=== PATIENT | male | born 1945 | race Caucasian/White ===

== ENCOUNTER 2020-03-30 17:00 | Outpatient (RCR) | payer MEDICARE, OTHER, SELFPAY | END 2020-04-26 15:00 | disposition home or self-care (01) | LOC: PT.CARL 17:00 | PROVIDERS: PCP Internal Medicine; Visit Provider Nurse Practitioner Family | DX: M54.5 Low back pain (principal) | CPT/HCPCS: 97010; 97014; 97110; 97140; 97163; G0283 ==

== ENCOUNTER → 2020-11-08 12:06 | Outpatient (CLI) | payer MEDICARE, OTHER, SELFPAY ==
--- NOTE | 2020-11-08 12:48 | CA_ITS ---
APPROVED REPORT EXAM: Comprehensive 2D, Doppler, and color-flow Echocardiogram Auditor Appraiser: Corie Henderosn RVT Ht: 5 ft 8 in Wt: 230lbs BSA: 2.17 BP: 135/78 mmHg Indications: ASCENDING AA,OBIE,EX SMOKER,HTN,HLD,STENT 2D Dimensions LVOT 2.35 cm (M/F) 1.5-2.5 LA Volume 22.80 mL LA Volume Index 10.50 mL/m2 (M/F) 16-34 M-Mode Dimensions RVDd 1.92 cm (0.9-2.6) LA Diam 3.39 cm (1.9-4.0) LVDd 5.90 cm (3.5-5.7) Ao Diam 4.08 cm (2.0-3.7) LVDs 3.84 cm (3.5-5.7) IVSd 1.25 cm (0.6-1.1) PWd 1.43 cm (0.6-1.1) EF (Teich) 63.30% FS 34.90% EDV (Teich) 173.20 mL TAPSE 1.96 (<1.7) ESV (Teich) 63.50 mL LV Diastology E Decel Time 150.00 (160-240 msec) E/A Ratio 0.8 MED E' 5.70 (< 7 cm/sec) E'/MED E' Ratio 9.84 (>14) LAT E' 5.20 (<10 cm/sec) E/LAT E' Ratio 10.79 (>14) Aortic Valve AI PHT 2146.00 ms AO Peak GR. 3.90 mmHg Mitral Valve MV E Max Russell. 56.00 (40-130 cm/s) MV A Velocity 68.00 (40-130 cm/s) E/A Ratio 0.82 MV Decel. Time 150.00 (160-240 ms) MV PHT 44.00 ms Pulmonary Valve PV Peak Velocity 94.00 (50-150 cm/s) Left Ventricle Left atrium is mildly enlarged, left ventricle is normal size, mild concentric left ventricular hypertrophy, visually estimated ejection fraction 50% with no regional wall motion abnormality, grade 1 diastolic dysfunction seen without tissue Doppler evidence of raise left atrial pressure. Right Ventricle Right atrium and right ventricle are normal size and contractility. Aortic Valve Aortic valve is minimally thickened and fibrosed, there is no aortic stenosis, there is mild aortic insufficiency. Mitral Valve Mitral valve leaflets are minimally thickened, there is mild mitral regurgitation. Tricuspid Valve Tricuspid valve grossly normal, there is mild tricuspid regurgitation, tricuspid regurgitation jet velocity is inadequate for calculation of the right ventricular systolic pressure. Pulmonic Valve Pulmonic valve is poorly visualized. Great Vessels Aortic root is mildly enlarged measuring 3.8 cm. Inferior vena cava is not well visualized. Pericardium No significant pericardial effusion noted. Conclusion 1. Technically difficult study, normal left ventricular size, mild concentric left ventricular hypertrophy, visually estimated ejection fraction 50% with no regional wall motion abnormality, grade 1 diastolic dysfunction seen without tissue Doppler evidence of raise left atrial pressure. 2. Mildly enlarged aortic root and ascending aorta measuring 3.8 cm. There is no aortic stenosis, there is mild aortic insufficiency. 3. Mild mitral and tricuspid regurgitation. 4. No significant pericardial effusion noted. Electronically signed by : Vladimir Cano MD 11/08/2020 20:43:06
== END ==
PROVIDERS: PCP Internal Medicine Adolescent Medicine; Visit Provider Thoracic Surgery (Cardiothoracic Vascular Surgery)
DX: I71.2 Thoracic aortic aneurysm, without rupture (principal)
CPT/HCPCS: 93306

== ENCOUNTER → 2020-12-21 10:45 | Outpatient (CLI) | payer MEDICARE, OTHER, SELFPAY ==
[2020-12-22 09:49] LABS: Hemoglobin A1C 7.2 % (4.0-6.0)
[2020-12-22 10:03] LABS: Anion Gap 15.9 mEq/L (5-15); Blood Urea Nitrogen 15 mg/dl (9-20); Calcium 9.4 mg/dl (8.4-10.2); Carbon Dioxide 23 mmol/L (22.0-30.0); Chloride 103 mmol/L (98-107); Estimated Glomerular Filt Rate 82 ml/min (>60); GFR (African American) 100 ML/MIN (>60); Glucose 148 mg/dl (74-100); Potassium 4.9 mmoL/L (3.5-5.1); Sodium 137 mmol/L (136-145)
== END ==
PROVIDERS: Visit Provider Internal Medicine Adolescent Medicine
DX: E11.9 Type 2 diabetes mellitus without complications (principal); Z79.84 Long term (current) use of oral hypoglycemic drugs
CPT/HCPCS: 80048; 83036

== ENCOUNTER → 2021-02-22 18:52 | Outpatient (CLI) | payer MEDICARE, OTHER, SELFPAY ==
[2021-02-22 19:24] LABS: Basophils # 0.1 K/mm3 (0-0.2); Basophils % 0.8 % (0.1-2.0); Eosinophils # 0.3 K/mm3 (0.0-0.4); Eosinophils % 4.1 % (0.1-12.0); Hematocrit 39.8 % (42.0-52.0); Hemoglobin 12.3 g/dL (14.1-18.0); Lymphocytes # 1.7 K/mm3 (0.7-4.5); Lymphocytes % 25.7 % (10-50); Mean Corpuscular Hemoglobin 30.3 pg (27.0-31.2); Mean Corpuscular Volume 97.7 fl (80-94); Mean Platelet Volume 9.4 fl (7.4-10.4); Monocytes # 0.4 K/mm3 (0.1-1.0); Monocytes % 5.8 % (1.7-9.3); Neutrophils # 4.1 K/mm3 (1.8-7.8); Neutrophils % 63.7 % (37.0-80.0); Platelet Count 297 K/mm3 (142-424); Red Blood Count 4.07 M/mm3 (4.60-6.20); Red Cell Distribution Width 15.9 % (11.5-17.5); White Blood Count 6.5 K/mm3 (4.8-10.8)
[2021-02-22 19:41] LABS: Alanine Aminotransferase 24 U/L (12-78); Albumin/Globulin Ratio 1.7 (1.1-1.8); Alkaline Phosphatase 57 U/L (38-126); Anion Gap 13.4 mEq/L (5-15); Aspartate Amino Transferase 29 U/L (17-59); Bilirubin,Total 0.4 mg/dl (0.2-1.3); Blood Urea Nitrogen 14 mg/dl (9-20); Calcium 9.1 mg/dl (8.4-10.2); Carbon Dioxide 25 mmol/L (22.0-30.0); Chloride 101 mmol/L (98-107); Estimated Glomerular Filt Rate 73 ml/min (>60); GFR (African American) 88 ML/MIN (>60); Globulin 2.3 g/dL (1.3-3.2); Glucose 169 mg/dl (74-100); Potassium 4.4 mmoL/L (3.5-5.1); Sodium 135 mmol/L (136-145); Total Protein,Serum 6.3 g/dl (6.3-8.2)
== END ==
PROVIDERS: Visit Provider Internal Medicine Adolescent Medicine
DX: K57.92 Diverticulitis of intestine, part unspecified, without perforation or abscess without bleeding (principal); Z86.711 Personal history of pulmonary embolism
CPT/HCPCS: 80053; 85025

== ENCOUNTER 2021-03-22 10:00 | Outpatient (RCR) | payer MEDICARE, OTHER, SELFPAY ==
--- NOTE | 2021-02-28 12:22 | HMH.PTOPEV ---
PT Outpatient Evaluation Rehab PT Outpatient Evaluation Start: 02/28/21 10:57 Freq: Status: Active Protocol: Document 02/28/21 10:57 PDESEROUX (Rec: 02/28/21 12:22 [email or web address] [id number]) Electronically Signed By Reinier Elliott, LAURA 02/28/21 10:57 Outpatient Therapy Subjective History Subjective History Pt. is a 75 year old male who presents to [facility] Out[facility] Therapy [facility] for the initial evaluation w/ c/o subacute and activity dependent post- surgical P!, muscle weakness, and deconditioning after staying in the hospital for 17 days. Pt. reports a loss of muscle strength, endurance, and shortness of breath(SOB) w / exertion after staying in the hospital for 17 days. Pt. reports having a GI bleed which required extensive surgery. Pt. reports post- surgical restrictions that include no lifting weighted objects at this time. Pt. reports being released from his Surgeon, but RTMD(Dr. Gordon) in 6 wks. Pt. reports seeing his Platen Builder Up tomorrow(03/01/21). Pt. reports his goals for Physical Therapy are to improved muscle strength, muscle endruance, and SOB w/ exertion . Current medications include Methocarbamol, Finasteride, Tamsulosin, Tamsulosin, Atenolol, Omeprazole, Amlodipine, Hydrochlorothiazide, Valsartan , Glimepiride, Metformin, Melatonin, Oxybutynin, Eliquis , Cholestyramine, and Escitalopram. PMH includes Hernia Repair, Type II Diabetes, and Angiopasty. Pt. denies history of cancer(self) , denies pacemaker. Chief Complaint Pain,Gives out/Unstable, Weakness Symptom Type Ache,Dull,Burning,Shooting
== END 2021-04-18 14:51 | disposition home or self-care (01) ==
LOC: PT.CARL 10:00
PROVIDERS: PCP Internal Medicine Adolescent Medicine; Visit Provider Internal Medicine Adolescent Medicine
DX: R53.81 Other malaise (principal)
CPT/HCPCS: 97110; 97163

== ENCOUNTER → 2021-06-21 10:44 | Outpatient (CLI) | payer MEDICARE, OTHER, SELFPAY ==
--- NOTE | 2021-06-21 10:46 | MR_ITS ---
FINAL REPORT CLINICAL HISTORY: LUMBAR NEURALGIA lower back pain when standing /walking x 5 years no recent trauma or injury FINDINGS: Multiplanar MR imaging of the lumbar spine was performed without contrast. On the sagittal T2-weighted images, disc degeneration is seen at multiple levels. There is 5 mm of anterolisthesis of L4 on L5. There is mild retrolisthesis of L2 on L3, L3 on L4 and L5 on S1. There is no evidence of fracture. The conus has an unremarkable appearance. L1-2: There is an annular disc bulge with facet arthropathy and vertebral osteophytes. There is mild left neural foraminal narrowing. L2-3: There is an annular disc bulge with facet arthropathy and vertebral osteophytes. There is mild bilateral neural foraminal narrowing. L3-4: There is an annular disc bulge with facet arthropathy and vertebral osteophytes. There is moderate right and mild left neural foraminal narrowing. L4-5: There is an annular disc bulge with facet arthropathy and vertebral osteophytes. There is mild right and moderate left neural foraminal narrowing. There is mild central canal stenosis with and AP diameter of the thecal sac of 7 mm. L5-S1: There is an annular disc bulge with facet arthropathy and vertebral osteophytes. There is a left foraminal disc protrusion. There is mild right and severe left neural foraminal narrowing. There is spurring of the SI joints. IMPRESSION: Multilevel degenerative disc disease with areas of neural foraminal narrowing which is worse on the left at L5-S1. Left foraminal disc protrusion at L5-S1. Mild central canal stenosis at L4-L5. Reviewed, Interpreted and Dictated by Dayday Francis III, MD Transcribed by Teresa Elizabeth Authenticated by Dayday Francis III, MD on 06/21/2021 12:40:51 PM [facility]
== END ==
PROVIDERS: PCP Internal Medicine Adolescent Medicine; Visit Provider Internal Medicine Adolescent Medicine
DX: M54.16 Radiculopathy, lumbar region (principal)
CPT/HCPCS: 72148; 76376

== ENCOUNTER → 2021-07-21 10:30 | Outpatient (POV) | payer MEDICARE, OTHER, SELFPAY ==
[2021-07-21 12:22] VITALS: BP 142/79; PULSE 67; RESP 18; TEMP 36.2; O2SAT 95; BMI 34.9
--- NOTE | 2021-07-21 13:31 | HMH.PMCON ---
Assessment and Plan (1) Degenerative disc disease, lumbar Status: Acute Category: Medical Code(s): M51.36 - Other intervertebral disc degeneration, lumbar region (2) Lumbar radiculopathy Status: Acute Category: Medical Code(s): M54.16 - Radiculopathy, lumbar region (3) Spinal stenosis, lumbar region with neurogenic claudication Status: Acute Category: Medical Code(s): M48.062 - Spinal stenosis, lumbar region with neurogenic claudication (4) Facet arthropathy Status: Acute Category: Medical Code(s): M47.819 - Spondylosis without myelopathy or radiculopathy, site unspecified (5) Lumbar spondylosis Status: Acute Category: Medical Code(s): M47.816 - Spondylosis without myelopathy or radiculopathy, lumbar region - Assessment and plan all Dx Assessment and Plan for all problems:: IMAGING: FINAL REPORT CLINICAL HISTORY: LUMBAR NEURALGIA lower back pain when standing /walking x 5 years no recent trauma or injury FINDINGS: Multiplanar MR imaging of the lumbar spine was performed without contrast. On the sagittal T2-weighted images, disc degeneration is seen at multiple levels. There is 5 mm of anterolisthesis of L4 on L5. There is mild retrolisthesis of L2 on L3, L3 on L4 and L5 on S1. There is no evidence of fracture. The conus has an unremarkable appearance. L1-2: There is an annular disc bulge with facet arthropathy and vertebral osteophytes. There is mild left neural foraminal narrowing. L2-3: There is an annular disc bulge with facet arthropathy and vertebral osteophytes. There is mild bilateral neural foraminal narrowing. L3-4: There is an annular disc bulge with facet arthropathy and vertebral osteophytes. There is moderate right and mild left neural foraminal narrowing. L4-5: There is an annular disc bulge with facet arthropathy and vertebral osteophytes. There is mild right and moderate left neural foraminal narrowing. There is mild central canal stenosis with and AP diameter of the thecal sac of 7 mm. L5-S1: There is an annular disc bulge with facet arthropathy and vertebral osteophytes. There is a left foraminal disc protrusion. There is mild right and severe left neural foraminal narrowing. There is spurring of the SI joints. IMPRESSION: Multilevel degenerative disc disease with areas of neural foraminal narrowing which is worse on the left at L5-S1. Left foraminal disc protrusion at L5-S1. Mild central canal stenosis at L4-L5. Reviewed, Interpreted and Dictated by Dayday Francis III, MD Transcribed by Teresa Elizabeth Authenticated by Dayday Francis III, MD on 06/21/2021 12:40:51 PM [facility]: Patient presents today with chief complaint of low back pain that radiates to bilateral lower extremities. He does have a positive shopping cart sign. He continues to do physical therapy which is providing some relief. He takes Tylenol arthritis for pain. We will schedule this patient for lumbar epidural steroid injection with epidurogram at L4-L5. Risks and benefits of the procedure have been explained to the patient. Patient would like to proceed with the procedure. Patient is on Eliquis. Patient will have to stop this medication prior to his procedure. We will reach out to Dr. Angel in [place] to see if the patient can stop this medication. Upon review of the patient's MRI, patient does have significant central canal stenosis at L4-L5 from annular bulging and ligamentum flavum hypertrophy. We will evaluate during the lumbar epidural steroid injection epidurogram to see if the patient is a good candidate for the mild procedure or the Vertiflex procedure. If the pt does not get significant relief from LESI, we will consider scheduling the patient for diagnostic lumbar facet/MBB at L4-L5 and L5-S1. Patient has been instructed to contact the clinic with any concerns before the next appointment. Dr. Saucedo has reviewed this note and agrees with this plan
== END ==
PROVIDERS: Visit Provider Student in an Organized Health Care Education/Training Program
DX: M51.16 Intervertebral disc disorders with radiculopathy, lumbar region (principal); M48.062 Spinal stenosis, lumbar region with neurogenic claudication; M47.26 Other spondylosis with radiculopathy, lumbar region
CPT/HCPCS: 99202; G0463

== ENCOUNTER 2021-08-12 13:49 | Day surgery (SDC) | payer MEDICARE, OTHER, SELFPAY ==
[2021-08-12 13:55] VITALS: BP 147/76; PULSE 67; RESP 20; O2SAT 96; BMI 31.4
[2021-08-12 14:10] VITALS: BP 135/71; PULSE 77; RESP 20
--- NOTE | 2021-08-12 14:18 | P.PCN_ITS ---
- Procedure Date: 08/12/21 Time: 14:18 Anesthesiologist:: Duran Saucedo MD Complications:: None Pre-procedure Diagnosis:: Degenerative disc disease of lumbar spine with lumbar radiculopathy symptoms and lumbar spinal stenosis with neurogenic claudication symptoms Post-procedure Diagnosis:: Same Indications for Procedure:: This patient is a pleasant 76-year-old white male who we are treating for low back pain with lumbar radicular symptoms. He has significant lumbar spinal stenosis with ligamentum flavum hypertrophy at L3-4 and L4-L5. He has increasing pain while walking and standing. He does get relief of his pain by leaning forward and sitting down. We will do a lumbar epidural steroid injection with epidurogram today to assess levels of stenosis and candidacy for minimally invasive lumbar decompression. He has been off of his Eliquis for 3 days. Procedure Details:: Informed consent was obtained and the risk and benefits of the procedure was e xplained to the patient. The patient was taken to the procedure room. The patient was placed prone on the procedure table. The patient was prepped and draped in sterile fashion. C-arm fluoroscopy was used to view the lumbar spine. Skin and subcutaneous tissues were anesthetized using lidocaine. I placed an 18-gauge epidural needle and advanced into the L4-L5 interspace using fluoroscopic guidance and [id number] to air. After confirmation of needle placement in the epidural space with dye I injected 2 mL of lidocaine 1.5% with Depo-Medrol 80 mg. Patient tolerated the procedure well with no complications. Plan and Disposition:: Based on epidurogram he does have significant stenosis at L3-4 and L4-L5 bilaterally. I do believe he would be a good candidate for minimally invasive lumbar decompression bilateral L3-4 and L4-L5. He will need to be off of his Eliquis for 4 days prior to the injection.
[2021-08-12 14:25] VITALS: BP 151/80; PULSE 75; RESP 18; O2SAT 94
== END 2021-08-12 14:26 | disposition home or self-care (01) ==
LOC: SC.PAINP 13:50
PROVIDERS: PCP Internal Medicine Adolescent Medicine; Visit Provider Anesthesiology
DX: M51.16 Intervertebral disc disorders with radiculopathy, lumbar region (principal); M48.062 Spinal stenosis, lumbar region with neurogenic claudication
CPT/HCPCS: 62323; J1040; Q9966

== ENCOUNTER → 2021-08-29 08:32 | Outpatient (POV) | payer MEDICARE, OTHER, SELFPAY ==
[2021-08-29 09:17] VITALS: BP 151/80; PULSE 75; RESP 20; TEMP 36.6; O2SAT 94; BMI 35.6
--- NOTE | 2021-08-29 09:17 | HMH.PAINSOAP ---
[facility] Pain Management SOAP Note Subjective:: Patient is a pleasant 76-year-old male who presents today for follow-up after a lumbar epidural steroid injection with epidurogram on August 12, 2021. Patient is currently being treated for degenerative disc disease of lumbar spine with lumbar radiculopathy symptoms, lumbar spinal stenosis with neurogenic claudication symptoms. After his injection, patient had significant relief of 80 to 90% that lasted for about a week. He states that he is not really complaining of pain but he is complaining of heaviness on bilateral lower extremities when he walks for more than 100 feet. Denies any recent falls or traumas. He has tried and failed conservative therapy in the past such as oral medication, and home exercises for greater than 6 weeks. He is not interested in any surgical interventions on his back. He states that he has known people who needed several rounds of back surgeries before they got relief. He takes Tylenol arthritis 3-4 times a day for as needed pain. He rates his pain today as 1 out of 10. He is not on any scheduled medications. Review of Systems: General: No recent weight changes, no fever, no sleep disturbances Respiratory: No cough, no shortness of air, no recurring pulmonary infections Cardiovascular/peripheral vascular: No chest pain, no palpitations, no edema, no shortness of breath Gastrointestinal: No new onset incontinence, normal bowel movements reported Genitourinary: No new onset incontinence Musculoskeletal: Low back pain Psychiatric: [Normal mood/affect] Neurological: [Denies weakness in extremities], [denies balance issues] Objective:: Physical Exam: General: Alert and oriented x3, no acute distress, pleasant and cooperative Lungs: Respirations even and unlabored, symmetrical chest expansion Eyes: PERRL Musculoskeletal: Flexion and extension of lumbar [spine] somewhat guarded secondary to pain, [antalgic gait noted] Neurological: Speech clear, no gross sensory deficit Assessment:: Degenerative disc disease of lumbar spine with lumbar radiculopathy symptoms, spinal stenosis with neurogenic claudication Plan:: Patient had significant relief after the lumbar epidural steroid injection with epidurogram that lasted for about a week. During his injection with epidurogram, patient is found to be a good candidate for the minimally invasive lumbar decompression bilaterally at L3-L4, L4-5. We will schedule the patient for this procedure. Risk and benefits of this procedure has been discussed with the patient. Patient would like to proceed with the minimally invasive lumbar decompression procedure. Patient is on Eliquis and will need to hold this medication prior to the procedure. Patient is also wanting to be referred for physical therapy to increase his strength. We will refer him today. Per the patient's MRI, patient is also a good candidate for a diagnostic lumbar facet/MBB at L4-L5 and L5-S1. We will discuss this procedure after his minimally invasive lumbar decompression procedure. Patient has been instructed to contact the clinic with any concerns before the next appointment. Dr. Saucedo has reviewed this note and agrees with this plan of care. This note was dictated using voice recognition software and make contain errors or omissions. [facility] History Medical History: Reports:: Coronary Artery Disease, Deep Vein Thrombosis, Diabetes Mellitus Type 2, Gastroesophageal Reflux Disease(GERD), Hyperlipidemia, Hypertension, Kidney Stones, Myocardial Infarction, Pulmonary Embolism Denies:: Cancer, Diabetes Mellitus Type 1, MRSA *Have you ever received a pneumonia vaccine?: Yes *Have you received a flu vaccine this season?: Yes Other Medical History: Reports: Arthritis Laterality Cases: Right: Total Hip Replacement Other Surgeries: Yes: Angioplasty, Cardiac Catheterization, Colonoscopy, Hernia Repair, Sinus Surgery, Ureter Stent, Other Amputation: No Fractures: No - *Social Histo
== END ==
PROVIDERS: Visit Provider Student in an Organized Health Care Education/Training Program
DX: M51.16 Intervertebral disc disorders with radiculopathy, lumbar region (principal); M48.062 Spinal stenosis, lumbar region with neurogenic claudication
CPT/HCPCS: 99212; G0463

== ENCOUNTER → 2021-09-20 10:26 | Outpatient (CLI) | payer MEDICARE, OTHER, SELFPAY ==
[2021-09-20 14:49] LABS: Basophils % 0.7 % (0.1-2.0); Eosinophils # 0.3 K/mm3 (0.0-0.4); Eosinophils % 4.2 % (0.1-12.0); Hematocrit 46.6 % (42.0-52.0); Hemoglobin 14.6 g/dL (14.1-18.0); Lymphocytes # 1.4 K/mm3 (0.7-4.5); Lymphocytes % 21.8 % (10-50); Mean Corpuscular HGB Conc 31.2 g/dL (31.8-35.4); Mean Corpuscular Hemoglobin 30.4 pg (27.0-31.2); Mean Corpuscular Volume 97.5 fl (80-94); Mean Platelet Volume 10.2 fl (7.4-10.4); Monocytes # 0.3 K/mm3 (0.1-1.0); Monocytes % 5.1 % (1.7-9.3); Neutrophils # 4.3 K/mm3 (1.8-7.8); Neutrophils % 68.3 % (37.0-80.0); Platelet Count 207 K/mm3 (142-424); Red Blood Count 4.78 M/mm3 (4.60-6.20); White Blood Count 6.3 K/mm3 (4.8-10.8)
[2021-09-20 14:53] LABS: Chloride 106 mmol/L (98-107); Potassium 4.9 mmoL/L (3.5-5.1); Sodium 138 mmol/L (136-145)
[2021-09-20 14:56] LABS: Anion Gap 13.9 mEq/L (5-15); Blood Urea Nitrogen 20 mg/dl (9-20); Carbon Dioxide 23 mmol/L (22.0-30.0); Estimated Glomerular Filt Rate 82 ml/min (>60); GFR (African American) 99 ML/MIN (>60)
[2021-09-20 14:57] LABS: Calcium 9.8 mg/dl (8.4-10.2); Glucose 200 mg/dl (74-100)
== END ==
PROVIDERS: PCP Internal Medicine Adolescent Medicine; Visit Provider Anesthesiology
DX: Z01.812 Encounter for preprocedural laboratory examination (principal); Z20.822 Contact with and (suspected) exposure to COVID-19; M51.36 Other intervertebral disc degeneration, lumbar region
CPT/HCPCS: 36415; 80048; 85025; C9803; U0003; U0005

== ENCOUNTER 2021-09-23 07:31 | Day surgery (SDC) | payer MEDICARE, OTHER, SELFPAY ==
[2021-09-21 11:17] VITALS: BMI 34.9
[2021-09-23] VITALS (7 sets, daily range): BP systolic 97–132; BP diastolic 58–70; PULSE 68–105; RESP 16–18; TEMP 36.1–43; O2SAT 90–96
[2021-09-23 08:17] LABS: POC Glucose,Bedside 181 (70-110)
--- NOTE | 2021-09-23 09:05 | P.PN_ITS ---
[facility] Anesthesia Checklist - Patient Identification Patient Identification: Arm Band - Structural Data Admitted From: Home Planned Operative Procedure/s: Lumbar decompression Consent for Planned Operative Procedure(s) Verified: Yes - NPO Status Verified Time NPO: 00:00 - Additional verifications Anesthesia Reactions: Yes ( difficult intubation ) Hx Blood Transfusions: Yes Blood Transfusion Reaction: No - Airway Assessment C-Spine Mobility Assessed: Yes TMJ Mobility Assessed: Yes Dentition: Poor Dentition - Neurological Assessment Level of Consciousness: Awake Hx Seizures: No Numbness or tingling in extremities: No - Anesthesia Plan Anesthesia Risk discussed: Yes Anesthesia Plan: Verified ASA Class: III Anesthesia Type: MAC [facility] History I have reviewed the patient's past medical history: Yes Medical History: Reports:: Coronary Artery Disease, Deep Vein Thrombosis, Diabetes Mellitus Type 2, Gastroesophageal Reflux Disease(GERD), Hyperlipidemia, Hypertension, Kidney Stones, Myocardial Infarction, Pulmonary Embolism Denies:: Cancer, Diabetes Mellitus Type 1, Internal Pacemaker, MRSA, Seizures *Have you ever received a pneumonia vaccine?: Yes *Have you received a flu vaccine this season?: Yes Other Medical History: Reports: Arthritis. Denies: Blood Transfusion Reaction Anesthesia experience/problems:: Difficult intubation Laterality Cases: Right: Total Hip Replacement Other Surgeries: Yes: Angioplasty, Cardiac Catheterization, Colonoscopy, Hernia Repair, Sinus Surgery, Ureter Stent, Other. No: Pacemaker Amputation: No Fractures: No - *Social History Last grade of school completed: 11th or 12th Smoking Status: Never smoker Alcohol Intake: current Alcohol Intake Frequency:: holidays/special occasions only Substance Use Type: denies use *Occupational Status:: retired Housing: house Household Members: none *Travel in the last 8 weeks: None Family Hx:: No significant family history
--- NOTE | 2021-09-23 10:56 | P.OP_ITS ---
Date of procedure: 09/23/21 Pre-op Diagnosis:: Degenerative disease of lumbar spine with lumbar radiculopathy symptoms and lumbar spinal stenosis with neurogenic claudication symptoms Post-op Diagnosis:: Same Procedure performed:: Minimally invasive lumbar decompression bilateral L3-L4 and L4-L5 under fluoroscopy Surgeon:: Duran Saucedo MD OFFICE MACHINE PUNCH OPERATOR:: Anna Kidd Anesthesia: MAC Estimated blood loss (mL): 5 Clinical Note:: This patient is a pleasant 76-year-old white male who we have been treating for low back pain with lumbar radiculopathy symptoms and lumbar spinal stenosis with ligamentum flavum hypertrophy and neurogenic claudication symptoms. Based on MRI and epidurogram he does have significant stenosis at L3-4 and L4-L5 bilaterally. He has failed all previous conservative therapy. He has been off of his Eliquis for 3 days. We will perform minimally invasive lumbar decompression bilateral L3-4 and L4-5 today. Operative findings:: none Operative note:: Informed consent was obtained and the risk and benefits of the procedure was explained to the patient. The patient was taken to the operating room and placed prone on the procedure table. The patient was prepped and draped in sterile fashion. C-arm fluoroscopy was used to view the lumbar spine. The skin and subcutaneous tissues were anesthetized using lidocaine. A epidural needle was inserted and advanced into the L3-L4 interspace. After confirmation of needle placement in the epidural space, dye was injected in a contralateral oblique view. There was an epidurogram seen at L3-L4 and L4-L5. Significant stenosis was seen at L3-L4 and L4-L5. The skin and subcutaneous tissues again were anesthetized using lidocaine. An incision was made and a access trocar was inserted and advanced to contact at the superior aspect of the L4 lamina on the left side. And a contralateral oblique view the side was viewed. Using a bone rongeur and tissue sculptor we debulked bone from the L3-L4 and L4-L5 interspace on the left side. We then used the tissue sculptor to debulk ligament at the L3-L4 and L4-L5 interspace on the left side. We then moved over to the right side and debulked bone and ligament from L3-L4 and L4-L5 on the right side. There is opening of the stenosis at L3-L4 and L4-L5 bilaterally. The access trocar was removed. A total of 3 mL's of dye was used. There is good spread of dye above and below this level as well. We injected 80 mg Depo-Medrol through the epidural needle. The epidural needle was removed and dressings were placed. This encounter for exam is for normal comparison and control in a clinical research program Patient was taken to recovery in stable condition. Patient was discharged home neurologically intact and with good relief of pain symptoms. Plan and disposition: We will follow-up with this patient in 2 weeks. Will reevaluate symptoms at that time. Condition: stable Disposition: PACU Complications:: None
== END 2021-09-23 11:34 | disposition home or self-care (01) ==
LOC: OR 07:33
PROVIDERS: PCP Internal Medicine Adolescent Medicine; Visit Provider Anesthesiology
DX: M48.062 Spinal stenosis, lumbar region with neurogenic claudication (principal); E11.9 Type 2 diabetes mellitus without complications; K21.9 Gastro-esophageal reflux disease without esophagitis; I25.10 Atherosclerotic heart disease of native coronary artery without angina pectoris; I10 Essential (primary) hypertension; E78.5 Hyperlipidemia, unspecified; I25.2 Old myocardial infarction; Z79.899 Other long term (current) drug therapy; Z00.6 Encounter for examination for normal comparison and control in clinical research program; M51.16 Intervertebral disc disorders with radiculopathy, lumbar region
CPT/HCPCS: 0275T; 82962; 96374; C1889; J1040; J2704

== ENCOUNTER → 2021-09-26 10:38 | Outpatient (POV) | payer MEDICARE, OTHER, SELFPAY ==
[2021-09-26 11:00] VITALS: BP 139/75; PULSE 74; RESP 20; O2SAT 95; BMI 34.9
--- NOTE | 2021-09-26 11:11 | HMH.PAINSOAP ---
[facility] Pain Management SOAP Note Subjective:: Patient is a pleasant 76-year-old male who presents today for follow-up from a new mild procedure on 09/23/2021. We are currently treating the patient for degenerative disc disease of lumbar spine with lumbar radiculopathy symptoms and lumbar spinal stenosis with neurogenic claudication symptoms. Patient states he is doing well since his procedure. He denies any problems. Patient states that when he did take off his bandage at home the glue was peeled and he did have bleeding. Patient is rating his pain a 0 out of 10 today. He states he is doing well overall. Patient denies any change to the location or type of pain he experiences. His daughter is present with him today for follow-up. She does think he has some altered gait since his hip surgery. Patient does not use any assistive devices. He does have a bike at home that he rides frequently for exercise. His Black is [id number]. It has been reviewed and appropriate. Review of Systems: General: No recent weight changes, no fever, no sleep disturbances Respiratory: No cough, no shortness of air, no recurring pulmonary infections Cardiovascular/peripheral vascular: No chest pain, no palpitations, no edema, no shortness of breath Gastrointestinal: No new onset incontinence, normal bowel movements reported Genitourinary: No new onset incontinence Musculoskeletal: Low back pain Psychiatric: [Normal mood/affect] Neurological: [Denies weakness in extremities], [denies balance issues] Objective:: Physical Exam: General: Alert and oriented x3, no acute distress, pleasant and cooperative Lungs: Respirations even and unlabored, symmetrical chest expansion Eyes: PERRL Musculoskeletal: Flexion and extension of lumbar [spine] somewhat guarded secondary to pain, [antalgic gait noted] Neurological: Speech clear, no gross sensory deficit Assessment:: Degenerative disc disease of lumbar spine with lumbar radiculopathy symptoms and lumbar spinal stenosis with neurogenic claudication symptoms Plan:: Patient has had significant improvement of his pain symptoms since having the MILD procedure. I have discussed with the patient regarding physical therapy for his altered gait. Patient has seen them in the past with significant improvement. Patient would like to proceed forward at this time with therapy. We will follow-up with the patient in 1 month. Patient will return to clinic in 1 month for follow-up and reevaluation of symptoms. Patient has been instructed to contact the clinic with any concerns before the next appointment. Dr. Saucedo has reviewed this note and agrees with this plan of care. This note was dictated using voice recognition software and make contain errors or omissions. [facility] History I have reviewed the patient's past medical history: Yes Medical History: Reports:: Coronary Artery Disease, Deep Vein Thrombosis, Diabetes Mellitus Type 2, Gastroesophageal Reflux Disease(GERD), Hyperlipidemia, Hypertension, Kidney Stones, Myocardial Infarction, Pulmonary Embolism Denies:: Cancer, Diabetes Mellitus Type 1, Internal Pacemaker, MRSA, Seizures *Have you ever received a pneumonia vaccine?: Yes *Have you received a flu vaccine this season?: Yes Other Medical History: Reports: Arthritis. Denies: Blood Transfusion Reaction Laterality Cases: Right: Total Hip Replacement Other Surgeries: Yes: Angioplasty, Cardiac Catheterization, Colonoscopy, Hernia Repair, Sinus Surgery, Ureter Stent, Other. No: Pacemaker Amputation: No Fractures: No - *Social History Smoking Status: Never smoker Alcohol Intake: current Alcohol Intake Frequency:: holidays/special occasions only Substance Use Type: denies use *Occupational Status:: retired Housing: house Household Members: none *Travel in the last 8 weeks: Inside the [place] Family Hx:: No significant family history
== END ==
PROVIDERS: PCP Internal Medicine Adolescent Medicine; Visit Provider Nurse Practitioner Family
DX: M51.16 Intervertebral disc disorders with radiculopathy, lumbar region (principal); M48.062 Spinal stenosis, lumbar region with neurogenic claudication
CPT/HCPCS: 99212; G0463

== ENCOUNTER 2021-10-10 10:00 | Outpatient (RCR) | payer MEDICARE, OTHER, SELFPAY ==
--- NOTE | 2021-10-03 12:14 | HMH.PTOPEV ---
PT Outpatient Evaluation Rehab PT Outpatient Evaluation Start: 10/03/21 10:36 Freq: Status: Active Protocol: Document 10/03/21 10:36 FEMI (Rec: 10/03/21 12:12 [email or web address] [id number]) Electronically Signed By Reinier Elliott, LAURA 10/03/21 10:36 Outpatient Therapy Subjective History Subjective History Pt. is a 76 year old male who presents to [facility] Outpatient Physical Therapy Services in [place] for the initial evaluation this date( 10/03/21) w/ c's/o chronic and constant(but variable) lumbar P!, balance deficits, and ADL deficits of insidious onset for 10 years now. Pt. reports having a chronic history of LBP! that has been treated through the Chiropractor, Physical Therapy, surgery, and the Pain Clinic. Pt. reports having some symptom relief in the lumbar spine w/ previous treament, but states having symptom relief temporarily. Pt . reports having S/P lumbar spine Surgery on 09/23/21 where they cleaned out my L4/ L5 disc. Pt. reports not having any symptom relief w/ surgery nor symptom relief w/ recent injection. Pt. reports his MD at the Pain Clinic would like to trial Physical Therapy 1x/wk. to treat current LBP!. Pt. RTMD . However, pt. reports having symptoms relief regarding the heaviness in BLEs, improvements w/ sleeping , and improved driving post surgery(09/23/21). But, pt. continues to report having functional limitations secondary to LBP! that includes ambulation and LOB. Current medications include Finasteride, Tamsulosin, Atenolol, Omeprazole, Amlodipine, Hydrochlorothiazide, Valsartan
== END 2021-11-14 16:47 | disposition home or self-care (01) ==
LOC: PT.CARL 10:00
PROVIDERS: PCP Internal Medicine Adolescent Medicine; Visit Provider Nurse Practitioner Family
DX: M54.50 Low back pain, unspecified (principal); R26.89 Other abnormalities of gait and mobility
CPT/HCPCS: 97010; 97012; 97014; 97110; 97163; G0283

== ENCOUNTER → 2023-01-08 12:17 | Outpatient (CLI) | payer MEDICARE, OTHER, SELFPAY ==
--- NOTE | 2023-01-08 12:35 | XR_ITS ---
FINAL REPORT CLINICAL HISTORY: LT HIP PAIN FINDINGS: LEFT HIP 3 views of the left hip are obtained. There is no acute fracture or dislocation. There are severe degenerative changes of the left hip. There are postoperative changes of right hip arthroplasty. Visualized joint spaces are normally aligned. There is no acute soft tissue abnormality. There vascular calcifications noted. Postoperative changes are seen in the lower pelvis. IMPRESSION: Severe degenerative changes of the left hip without acute bony abnormality. Reviewed, Interpreted and Dictated by Dayday Francis III, MD Transcribed by Courtney Jacobs Authenticated and . [facility]
== END ==
PROVIDERS: PCP Internal Medicine Adolescent Medicine; Visit Provider Internal Medicine Adolescent Medicine
DX: M25.552 Pain in left hip (principal)
CPT/HCPCS: 73502

== ENCOUNTER 2025-01-12 14:00 | Outpatient (RCR) | payer MEDICARE, OTHER, SELFPAY | END 2025-01-12 23:59 | disposition home or self-care (01) | LOC: PT.CARL 14:00 | PROVIDERS: PCP Internal Medicine Adolescent Medicine; Visit Provider Orthopaedic Surgery | DX: Z47.1 Aftercare following joint replacement surgery (principal); Z96.642 Presence of left artificial hip joint | CPT/HCPCS: 97110; 97112; 97161; 97530 ==

== ENCOUNTER 2025-02-04 13:00 | Outpatient (RCR) | payer MEDICARE, OTHER, SELFPAY | END 2025-02-04 16:45 | disposition home or self-care (01) | LOC: PT.CARL 13:00 | PROVIDERS: PCP Internal Medicine Adolescent Medicine; Visit Provider Orthopaedic Surgery | DX: Z96.642 Presence of left artificial hip joint (principal) | CPT/HCPCS: 97110; 97112; 97530 ==

== ENCOUNTER 2025-02-18 14:00 | Outpatient (RCR) | payer MEDICARE, OTHER, SELFPAY ==
--- NOTE | 2025-02-16 14:28 | HMH.PTOPEV ---
PT Evaluation Rehab PT Outpatient Evaluation Start: 02/16/25 12:54 Freq: Status: Active Protocol: Document 02/16/25 12:55 PDESEROUX (Rec: 02/16/25 14:28 [email or web address] [id number]) E-signed By Reinier Elliott, PT Outpatient Therapy Subjective History Subjective History Pt. is a 79 year old male who presents to [facility] Outpatient Physical Therapy Services in [place] for the PT outpatient initial evaluation this date(02/16/25 ) w/ c/o acute and constant R UE shldr. P!, popping, and weakness of traumatic onset secondary to a fall two weeks ago. Pt. reports he was exiting his home through his side door into his car port when he tripped over the threshold and landed on the R UE shldr. Pt. reports having a chronic history of R UE shldr. RC trauma. Pt. reports in 1997 he was leaving work in [place] and slipped on snow in the parking lot that tore my shoulder up. Pt. reports he elected not to have surgery at that time so I just deal with it. Pt. reports he believes he re-aggravated his previous RC injury. Recent diagnostic imaging(radiograph) R UE shldr. unremarkable per pt. report. Pt. reports he was scheduled for a MRI of the R UE shldr. for last (02/12/25), however, when he went back to the Doctor's room he was told that the MRI machine had broke. Pt. reports he is now waiting on a call to hear back to reschedule his MRI. Pt. denies having any specific restrictions secondary to new injury to R UE shldr. per referring Physician. Pt. does not have a return date to referring Physician at this time until he has his MRI of the R UE shldr. per pt. report. Pt. reports the pain is constant, but c/o P! worsening w/ pushing off to get out of bed in the a.m., trying to put his R UE into the shirt sleeve, rolling over in bed , and using the R UE to feed himself. Pt. also c/o shoulder feels like its about to pop when he twists his arm from time to time, describes the feelings like slipping on ice. Pt. reports having some symptom relief w/ prescribed pain medicine w/ OTC Tylenol that he had prescribed for s/p L LE JANENE , that he was instructed per MD to do so. However, pt. reports the pain always returns after the medicine wears off. Current medications include Tamsulosin, Eliquis, Valsartan, Fenofibrate, Jardiance, Buspirone, Cetirizine, Meloxicam, Ozempic, and Metformin. PMH includes s/p hernia repair, colon resection, DM-II, hypertension, s/p L LE JANENE, and hyperlipidemia. Pt. was being seen for skilled Outpatient Physical Therapy for s/p L LE JANENE and imbalance during recent fall to [facility]. Therefore, pt.'s current order has also included balance order. Physical Therapist instructed pt. to discontinue HEP if symptoms worsened w/ exercises, pt. vocalized understanding. New diagnosis of No cancer in past 12 months? Chief Complaint Pain,Stiff,Clicks,Swelling,Gives out/Unstable,Weakness Symptom Type Ache,Throb,Sharp,Dull,Stabbing,Shooting Symptoms Relieved By Rest/Positioning,Brace/Support,Prescription Meds Symptoms Aggravated Physical Activity,Twisting,Lifting By Prior Functional None Limitations Current Functional Reaching,Lifting,Housework,Dressing,Desk Work/Reading, Limitations Driving,Sleeping,Recreation Activity Symptom Description Constant but Variable,Activity Dependent Level of pain today 2 (0-10) Pain scale - at its 2 best (0-10) Pain scale - at its 10 worst (0-10) Shoulder/Elbow Eval Shoulder Objective Measurements Palpation Tenderness tenderness shoulder right exam standard tenderness over the right bicipital tendon shoulder exam standard tenderness over the right SA bursa shoulder exam standard Shoulder Palpation Tenderness,Spasm Findings Shoulder Palpation grade 4 +TTP greater and lesser tubercles Overall Comment Posture Shoulder Posture (R) Rounded,(R) Forward Standing Position Scapula Posture (R) Protracted Sitting Position Scapular Posture (R) Protracted Standing Position Flexibilty Deficits Latissmus Dorsi (R) Severe Tightness Muscle Length Pectoralis Minor (R) Severe Tightness Muscle Length Pectoralis Major (R) Severe Tightness Muscle Length Shoulder External (R) Severe Tightness Rotators Muscle Length Shoulder Internal (R) Severe Tightness Rotators Muscle Length Supraspinatus Muscle (R) Severe Tightness Length Teres Major Muscle (R) Severe Tightness Length Upper Trapezius (R) Severe Tightness Muscle Length Levaetor Scapulae (R) Severe Tightness Muscle Length Shoulder ROM Right Shoulder ROM Soft Tissue Tightness,Muscle Weakness,Muscle Tone,Pain Limitations Shoulder Abduction 57 Active Range of Motion (degrees) Shoulder Abduction 107 Passive Range of Motion (degrees) Shoulder Flexion 75 Active Range of Motion (degrees) Query Text: Shoulder Flexion 89 Passive Range of Motion (degrees) Shoulder External 37 Rotation Active Range of Motion ( degrees) Shoulder External 41 Rotation Passive Range of Motion ( degrees) Shoulder Internal 73 Rotation Active Range of Motion ( degrees) Shoulder Internal 79 Rotation Passive Range of Motion ( degrees) Shoulder Extension 55 Active Range of Motion (degrees) Shoulder Extension 59 Passive Range of Motion (degrees) pain with active ROM right shoulder exam standard pain with passive right ROM shoulder exam standard decreased ROM right shoulder exam standard Shoulder MMT Shoulder Abduction 2+ Poor+ Strength Grade Shoulder Extension 3 Fair Strength Grade Shoulder Flexion 2+ Poor+ Strength Grade Shoulder External 2+ Poor+ Rotation Strength Grade Shoulder Internal 3 Fair Rotation Strength Grade Shoulder Strength Sitting Patient Testing Position Shoulder Muscle Tone Shoulder Flexor Severe Hypertonicity Muscle Tone Description Shoulder Extensors Severe Hypertonicity Muscle Tone Description Shoulder Lateral Severe Hypertonicity Rotator Muscle Tone Description Shoulder Special Tests Shoulder Drop Arm Positive Right Test Shoulder Empty Can ( Positive Right Supraspinatus) Test Shoulder Higgins- Positive Right Ji Impingement Test Shoulder Speed's Positive Right Sign Test Elbow Objective Measurements Accessory Movements Right Shoulder Girdle Glenohumeral [place],Glenohumeral [place] Accessory Movements that Elicit Symptoms QuickDASH Activities Please rate your ability to do the following activities in the last week by selecting the number below the appropriate response. 1. Open a tight or Moderate difficulty new jar. 2. Do heavy Moderate difficulty bad cloth checker (e. g., wash goldman, floors). 3. Carry a shopping Moderate difficulty bag or briefcase. 4. Wash your back. Moderate difficulty 5. Use a knife to Moderate difficulty cut food. 6. Recreational Moderate difficulty activities in which you take some force or impact through your arm, shoulder, or hand (e.g., golf, hammering, tennis, etc.). 7. During the past Moderately week, to what extent has your arm, shoulder or hand problem interfered with your normal social activities with family, friends , neighbors or groups? 8. During the past Very limited week, were you limited in your work or other regular daily activites as a result of your arm, shoulder or hand problem? 9. Arm, shoulder or Moderate hand pain. 10. Tingling (pins Mild and needles) in your arm, shoulder or hand. 11. During the past Mild difficulty week, how much difficulty have you had sleeping because of the pain in your arm, shoulder or hand? Quick DASH 32 Miscellaneous Dx PT Eval Objective Objective +painful arc R UE shldr. Outpatient Therapy Assessment Impairments Problems/ Palpation Tenderness,Impaired Range of Motion,Impaired Impairmments Strength,Impaired Endurance,Impaired Transfers,Impaired Lifting,Impaired Dressing,Impaired Shower/Bathing, Impaired Household Care,Impaired Recreational Activities,Impaired Work Activities,Impaired Desk/ Computer Activities,Increased Edema,Subjective C/O Pain ,Impaired Self Care/Self Management Prognosis Rehab Potential Good Comment w/ HEP compliancy Clinical Impression Consistent with Yes Diagnosis Consistent with injury to R UE shldr. RC Additional details: gait training imbalance PT Patient Goals PT Patient Goals PT Short Term STG#1.) Pt. will subjectively vocalize symptomatic R UE Patient Goals shldr. P! a 5/10 @ worse in 4 wks. for improved QOL. STG#2.) Pt. will demonstrate compliancy w/ initial HEP in 4 wks. for improved prognosis w/ Physical Therapy. STG#3.) Pt. will exhibit grade 2 +TTP to R UE shldr. long head biceps tendon in 4 wks. for improved QOL. 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 will subjectively vocalize symptomatic R UE Goals shldr. P! a 2/10 @ worse in 6-8 wks. for improved QOL. LTG#2.) Pt. will demonstrate compliancy w/ advanced HEP in 6-8 wks. for optimal prognosis w/ Physical Therapy. LTG#3.) Pt. will exhibit grade 1 +TTP to R UE shldr. long biceps tendon in 6-8 wks. for improved QOL. LTG#4.) Pt. will demonstrate a 20 degree improvement in R UE shldr. active abd. ROM in 6-8 wks. to return to donning shirt sleeve w/o difficulty. LTG#5.) Pt. will demonstrate 4+/5 in R UE shldr. abd. MMT score in 6-8 wks. to return to pushing self up w/ R UE out of bed /wo difficulty. Outpatient Therapy Plan of Care Treatment Plan May Include Therapeutic Exercise Yes Including Home Exercise Program Manual Therapy Yes Techniques Neuromuscular Re- Yes education Therapeutic Yes Activities to Return to Previous Functional/Work Level ADL/Self Care Yes Education Dry Needling Yes Thermal Modalities Yes Electrical Yes Stimulation Ultrasound/ Yes Phonophoresis Iontophoresis Yes Vasopneumatic Yes Compression Pump Massage Yes Eval/Re-Eval Yes Frequency Times per week 2-3 Duration Number of Weeks 6-8 Addendums This patient is a No candidate for social or vocational rehab ? Patient/Guardian Yes verbally acknowledges understanding of treatment program and consents to further treatment? Patient/Guardian Yes verbally acknowledges understanding of diagnosis, prognosis and goals for treatment? Eval Complexity PT Charges 42062 - Moderate Complexity PHYSICIAN CERTIFICATION: I certify the specified therapy services for Adrian Pineda are required, authorized, and reviewed every 30 days.
== END 2025-02-18 23:59 | disposition home or self-care (01) ==
LOC: PT.CARL 14:00
PROVIDERS: PCP Internal Medicine Adolescent Medicine; Visit Provider Internal Medicine Adolescent Medicine
DX: S46.001A Unspecified injury of muscle(s) and tendon(s) of the rotator cuff of right shoulder, initial encounter (principal)
CPT/HCPCS: 97032; 97035; 97110; 97140; 97162